=== PATIENT | male | born 1960 | race Caucasian/White ===

== ENCOUNTER 2022-06-21 09:36 | Outpatient (AMB) | payer OTHER, SELFPAY ==
--- NOTE | 2022-06-21 09:48 | A.OFFPC_ITS ---
Vital Signs 06/21/22 09:59 Height 6 ft Weight 202 lb BMI 27.3 BP 140/80 H Blood Pressure Location Lt brachial Position Sitting Pulse 70 Pulse Source Pulse Oximeter Pulse Oximetry (%) 97 Oxygen Delivery Method Room Air Intake Visit Reasons: Hypertension Intake Note: Pt is here today to f/u HTN Allergies No Known Allergies [No Known Allergies*] Allergy (Verified 06/21/22 10:31) Medication List - Last Reconciled 06/21/22 by Loly Morley MD lisinopril 40 mg PO DAILY Tobacco use date assessed: 06/21/22 HPI HPI Comments History of Present Illness Details Patient states that he does had a DOT physical several weeks ago and blood pressure there was 136 systolic. Denies any chest pain, no lightheadedn ess, no having, no chest pressure, nausea. Currently takes lisinopril 40 mg once a day in a.m., and has been trying to follow a low-salt diet but admits to not getting any regular exercise. He is also due for screening colonoscopy, has history of tubular adenoma removed [facility] Medical History (Updated 06/21/22 @ 10:50 by Loly Morley MD) Essential hypertension Family history of colon cancer in father Immunization refused Tubular adenoma of colon Surgical History History of vasectomy Hx of colonoscopy Family History Father Colon cancer Mother CVD (cardiovascular disease) Smoker History of heart attack Social History Housing: House Alcohol intake: current Patient Tobacco Use Status: Never used Tobacco e-Cigarette/Vaping Use: Never Used service: No Current occupational status: employed Cognitive needs: No Hearing needs: No Vision needs: No Questionnaire PHQ-9 Over the last 2 weeks, how often have you been bothered by any of the following problems? 1. Little interest or pleasure in doing things: not at all 2. Feeling down, depressed, or hopeless: not at all 3. Trouble falling or staying asleep, or sleeping too much: not at all 4. Feeling tired or having little energy: not at all 5. Poor appetite or overeating: not at all 6. Feeling bad about yourself - or that you are a failure or have let yourself or your family down: not at all 7. Trouble concentrating on things, such as reading the newspaper or watching television: not at all 8. Moving or speaking so slowly that other people could have noticed. Or the opposite - being so fidgety or restless that you have been moving around a lot more than usual: not at all 9. Thoughts that you would be better off or of hurting yourself in some way: not at all Total score: 0 Depression Screening Interpretation: Negative 24927 - PHQ-9 Billing: Yes Source: Developed by Drs. Michael Nuñez, Cammy Chamberlain, Trevor Brunner and colleagues, with an educational maximo from [employer]. Thrive Questionnaire Declines Thrive assessment: No Date Thrive assessed: 06/21/22 I am a: Patient What is your living situation today?: I have a steady place to live Within the past 12 months, did the food you bought not last and you didn't have the money to get more?: Never true Within the past 12 months, did you worry whether your food would run out before you got money to buy more?: Never true Do you have trouble paying for medicines?: No Do you have trouble getting transportation to medical appointments?: No Do you have trouble paying your heating and electricity bill?: Yes Do you have trouble taking care of your child, family member or friend?: No Do you have trouble with day-to-day activities such as bathing, preparing meals, shopping, managing finances, etc.?: No Are you currently unemployed and looking for a job?: No Are you interested in more education?: No AUDIT C Alcohol Use Questionnaire (AUDIT-C) 1. How often do you have a drink containing alcohol?: Monthly or less 2. How many drinks containing alcohol do you have on a typical day when you are drinking?: 1 or 2 3. How often do you have six or more drinks on one occasion?: Never Total Score: 1 Review of Systems Const Denies fatigue and Denies lethargy Eyes Denies change in vision Card Denies chest pain, Denies pedal edema, Denies edema, Denies irregular heart rhythm, Denies lightheadedness, Denies radiating jaw, neck or arm pain and Denies dyspnea Resp Denies cough and Denies dyspnea GI Reports no additional complaints Reports no additional complaints Musc Reports no additional complaints Neuro Reports no additional complaints Endo Denies fatigue Physical exam (Primary Care) Vital Signs: Last Vital Signs Pulse 70 06/21/22 09:59 BP 140/80 H 06/21/22 09:59 Pulse Ox 97 06/21/22 09:59 Oxygen Delivery Method Room Air 06/21/22 09:59 BMI result Body Mass Index 27.3 Tobacco/Smoking Status: Tobacco use Status Tobacco use date assessed 06/21/22 06/21/22 10:04 Patient Tobacco Use Status Never used Tobacco 06/21/22 10:04 e-Cigarette/Vaping Use Never Used 06/21/22 10:04 PHQ-9: PHQ-9 Score PHQ-9: Total score 0 06/21/22 10:36 Depression Screening Interpretation: Negative Thrive Assessment: Date of Thrive Assessment Date Thrive assessed 06/21/22 06/21/22 09:58 Const Other: Alert oriented x3, no acute distress noted ambulatory normal gait Nutritional Appearance: overweight Orientation/consciousness: patient oriented x3 HENMT Head: Yes normocephalic Face and sinus: Yes face symmetric Mouth: Normal oral and palatal mucosa present, tongue normal, oropharynx normal and moist mucous membranes Neck Neck: Yes full ROM, Yes no lymphadenopathy and Yes supple Resp Auscultation: clear to auscultation bilaterally Cardio Rate: regular rate Rhythm: regular rhythm Heart sounds: S1 normal heart sound present and S2 normal heart sound present GI Palpation (GI): Soft to palpation, nontender, no guarding and no masses Auscultation: normal bowel sounds Neuro General: patient oriented x3, gait normal, tone normal, moves all extremities, Normal light touch and pain sensation, no focal motor deficits and CN's II-XI i ntact bilaterally Extrem General: Yes full ROM, Yes no joint enlargement, Yes no clubbing, cyanosis or edema, Yes no calf tenderness and Yes normal gait Assessment and Plan Assessment & Plan (1) Essential hypertension: Code(s): I10 - Essential (primary) hypertension Plan: Blood pressure goal is less than 130/80. Continue with lisinopril 40 mg daily. Reinforced importance of following a low sodium diet, getting regular exercise, and lowering stress levels. Fasting labs ordered to check lipids, basic metabolic panel, liver enzymes, (2) Tubular adenoma of colon: Code(s): D12.6 - Benign neoplasm of colon, unspecified Plan: Referred to GI for repeat colonoscopy (3) Family history of colon cancer in father: Code(s): Z80.0 - Family history of malignant neoplasm of digestive organs (4) Immunization refused: Code(s): Z28.21 - Immunization not carried out because of patient refusal (5) Screening for prostate cancer: Code(s): Z12.5 - Encounter for screening for malignant neoplasm of prostate Plan: Total PSA ordered Orders: Orders Alanine Aminotransferase 06/21/22 Z80.0 - Family history of malignant neoplasm of digestive organs, I10 - Essential (primary) hypertension, D12.6 - Benign neoplasm of colon, unspecified, Z12.5 - Encounter for screening for malignant neoplasm of prostate Aspartate Amino Transferase 06/21/22 Z80.0 - Family history of malignant neoplasm of digestive organs, I10 - Essential (primary) hypertension, D12.6 - Benign neoplasm of colon, unspecified, Z12.5 - Encounter for screening for malignant neoplasm of prostate Basic Metabolic Panel Fasting 06/21/22 Z80.0 - Family history of malignant neoplasm of digestive organs, I10 - Essential (primary) hypertension, D12.6 - Benign neoplasm of colon, unspecified, Z12.5 - Encounter for screening for malignant neoplasm of prostate Lipid Panel 06/21/22 Z80.0 - Family history of malignant neoplasm of digestive organs, I10 - Essential (primary) hypertension, D12.6 - Benign neoplasm of colon, unspecified, Z12.5 - Encounter for screening for malignant neoplasm of prostate PSA,Total (Free>4and<10) 06/21/22 Z80.0 - Family history of malignant neoplasm of digestive organs, I10 - Essential (primary) hypertension, D12.6 - Benign neoplasm of colon, unspecified, Z12.5 - Encounter for screening for malignant neoplasm of prostate Referrals Gastroenterology Referral D12.6 - Benign neoplasm of colon, unspecified, Z80.0 - Family history of malignant neoplasm of digestive organs Medications: Refilled lisinopril 40 mg PO DAILY 90 caps 3RF I10 - Essential (primary) hypertension Coding Level of Care Code Est Pt Level 4 (67085) Diagnoses Essential hypertension I10 Tubular adenoma of colon D12.6 Family history of colon cancer in father Z80.0 Immunization refused Z28.21 Screening for prostate cancer Z12.5
[2022-06-21 09:59] VITALS: BP 140/80; PULSE 70; O2SAT 97; BMI 27.3
== END 2022-06-21 10:52 | disposition home or self-care (01) ==
LOC: HO.HMGC 09:36
PROVIDERS: PCP Internal Medicine; Visit Provider Internal Medicine
DX: I10 Essential (primary) hypertension (principal); D12.6 Benign neoplasm of colon, unspecified; Z80.0 Family history of malignant neoplasm of digestive organs; Z28.21 Immunization not carried out because of patient refusal; Z12.5 Encounter for screening for malignant neoplasm of prostate
CPT/HCPCS: 99214

== ENCOUNTER 2023-06-25 10:35 | Outpatient (AMB) | payer OTHER, SELFPAY ==
--- NOTE | 2023-06-25 11:29 | MHC.PC.OV ---
Vital Signs 06/25/23 11:39 06/25/23 12:09 Height 6 ft Weight 198 lb BMI 26.9 BP 150/82 H 135/80 Blood Pressure Location Lt brachial Lt brachial Position Sitting Sitting Pulse 66 Pulse Source Pulse Oximeter Pulse Oximetry (%) 97 Oxygen Delivery Method Room Air Intake Visit Reasons: Annual PE Hypertension Intake Note: Pt is here today for his PE: Colonoscopy 07/17/2017 Allergies No Known Allergies [No Known Allergies*] Allergy (Verified 06/25/23 12:15) Medication List - Last Reconciled 06/25/23 by Loly Morley MD lisinopril 40 mg PO DAILY Tobacco use date assessed: 06/25/23 Dental Screening Dental Screen Date: 06/25/23 Did you have a dental visit in the last 12 months?: Yes Did you have a dental problem in the last 6 months where you did not have access to dental care?: Yes Was dental information given to patient?: Patient has dentist HPI Annual PE Hypertension HPI Details 63-year-old male here today for his physical exam. He has hypertension currently stable on lisinopril 40 mg daily. He is semi retired, but still works part-time, stays active, does not smoke and tries to eat a healthy diet. He is overdue for a screening colonoscopy, father has been diagnosed to have book colon cancer. He has had 2 colonoscopies both of which showed presence of tubular adenoma. He has already fasting labs ordered, reminded to get it done Does not want to get COVID vaccine or flu shot, up-to-date with his Tdap, reminded to get his shingles vaccine PFS Medical History Immunization refused Family history of colon cancer in father Essential hypertension Tubular adenoma of colon Surgical History Hx of colonoscopy History of vasectomy Family History Father Colon cancer Mother CVD (cardiovascular disease) Smoker History of heart attack Social History Housing: House Alcohol intake: current Patient Tobacco Use Status: Never used Tobacco e-Cigarette/Vaping Use: Never Used service: No Current occupational status: employed Cognitive needs: No Hearing needs: No Vision needs: No Questionnaire PHQ-9 Over the last 2 weeks, how often have you been bothered by any of the following problems? 1. Little interest or pleasure in doing things: not at all 2. Feeling down, depressed, or hopeless: not at all 3. Trouble falling or staying asleep, or sleeping too much: not at all 4. Feeling tired or having little energy: not at all 5. Poor appetite or overeating: not at all 6. Feeling bad about yourself - or that you are a failure or have let yourself or your family down: not at all 7. Trouble concentrating on things, such as reading the newspaper or watching television: not at all 8. Moving or speaking so slowly that other people could have noticed. Or the opposite - being so fidgety or restless that you have been moving around a lot more than usual: not at all 9. Thoughts that you would be better off or of hurting yourself in some way: not at all Total score: 0 Depression Screening Interpretation: Negative Depression Screening Done: Yes 32047 - PHQ-9 Billing: Yes Source: Developed by Drs. Michael Nuñez, Cammy Chamberlain, Trevor Brunner and colleagues, with an educational maximo from [employer] acquired by [employer]. Thrive Questionnaire Date Thrive assessed: 06/25/23 I am a: Patient What is your living situation today?: I have a steady place to live Within the past 12 months, did the food you bought not last and you didn't have the money to get more?: Never true Within the past 12 months, did you worry whether your food would run out before you got money to buy more?: Never true Do you have trouble paying for medicines?: No Do you have trouble getting transportation to medical appointments?: No Do you have trouble paying your heating and electricity bill?: No Do you have trouble taking care of your child, family member or friend?: No Do you have trouble with day-to-day activities such as bathing, preparing meals, shopping, managing finances, etc.?: No Are you currently unemployed and looking for a job?: No Are you interested in more education?: No THRIVE Score: 0 AUDIT C Alcohol Use Questionnaire (AUDIT-C) 1. How often do you have a drink containing alcohol?: 2-3 times a week 2. How many drinks containing alcohol do you have on a typical day when you are drinking?: 1 or 2 3. How often do you have six or more drinks on one occasion?: Never Total Score: 3 TYLER-7 AMB Questionnaire TYLER-7 Date TYLER - 7 assessed: 06/25/23 Feeling nervous, anxious, or on edge: 0 = Not at all Not being able to stop or control worryin = Not at all Worrying too much about different things: 0 = Not at all Trouble relaxin = Not at all Being so restless that it is hard to sit still: 0 = Not at all Becoming easily annoyed or irritable: 0 = Not at all Feeling afraid as if something awful might happen: 0 = Not at all Total TYLER-7 score (0-4 normal; 5-9 mild; 10-14 moderate; 15-21 severe): 0 Source: Developed by Drs. Michael Nuñez, Cammy Chamberlain, Trevor Brunner and colleagues, with an educational maximo from [employer] acquired by [employer]. TYLER-7 Assessment Billing TYLER-7 Assessment Tool: TYLER-7 Assessment 32187 Review of Systems Const Denies difficulty sleeping, Denies fatigue, Denies lethargy and Denies weakness Eyes Denies change in vision ENT Reports no additional complaints Card Denies chest pain, Denies pedal edema, Denies edema, Denies irregular heart rhythm, Denies lightheadedness, Denies radiating jaw, neck or arm pain and Denies dyspnea Resp Denies cough and Denies dyspnea GI Reports no additional complaints Reports no additional complaints Musc Reports no additional complaints Skin/Breast Denies rash Neuro Reports no additional complaints and Denies weakness Psych Reports no additional complaints Endo Denies fatigue, Denies polydipsia and Denies polyuria Baljit/Lymph Reports no additional complaints Aller/Immun Reports no additional complaints Physical exam (Primary Care) Vital Signs: Last Vital Signs Pulse 66 06/25/23 11:39 BP 150/82 H 06/25/23 11:39 Pulse Ox 97 06/25/23 11:39 Oxygen Delivery Method Room Air 06/25/23 11:39 BMI result Body Mass Index 26.9 Tobacco/Smoking Status: Tobacco use Status Tobacco use date assessed 06/25/23 06/25/23 11:31 Patient Tobacco Use Status Never used Tobacco 06/25/23 11:31 e-Cigarette/Vaping Use Never Used 06/25/23 11:31 PHQ-9: PHQ-9 Score PHQ-9: Total score 0 06/25/23 11:44 Depression Screening Interpretation: Negative Thrive Assessment: Date of Thrive Assessment Date Thrive assessed 06/25/23 06/25/23 11:44 Const Other: Alert oriented x3, no acute distress noted ambulatory normal gait Nutritional Appearance: overweight Orientation/consciousness: patient oriented x3 HENMT Head: Yes normocephalic Face and sinus: Yes face symmetric Mouth: Normal oral and palatal mucosa present, oropharynx normal and moist mucous membranes Neck Neck: Yes full ROM, Yes no lymphadenopathy and Yes supple Resp Auscultation: clear to auscultation bilaterally Cardio Rate: regular rate Rhythm: regular rhythm Heart sounds: S1 normal heart sound present and S2 normal heart sound present GI Palpation (GI): Soft to palpation, nontender, no guarding and no masses Auscultation: normal bowel sounds Other: Declined exam General: Yes no CVA tenderness Back/Spine/Pelvis Back: no CVA tenderness and No back tenderness Skin General skin exam: no rashes or lesions noted Neuro General: patient oriented x3, gait normal, tone normal, moves all extremities, Normal light touch and pain sensation, no focal motor deficits and CN's II-XI intact bilaterally Extrem General: Yes full ROM, Yes no joint enlargement, Yes no clubbing, cyanosis or edema, Yes no calf tenderness and Yes normal gait Psych Appearance: grossly normal and well kempt Mental Status: mental status grossly normal Speech and movement: Normal speech and movement present Affect: normal affect Attitude: cooperative Thought process: Normal thought process present Thought content: Normal thought content present Assessment and Plan Assessment & Plan (1) Annual visit for general adult medical examination with abnormal findings: Code(s): Z00.01 - Encounter for general adult medical examination with abnormal findings Plan: Will check appropriate labs, already ordered, patient reminded to get it done. Recommended dental visit every 6 months and regular eye exams, at least every 2 years. Take adequate calcium in diet and vitamin-D 3 at 2000 IU per cap once a day, in addition to weight-bearing exercises to help maintain good muscle tone and weight control. Instructed to do self-testicular exam to check for any mass. Declined getting COVID or flu shot, recommended to get Shingrix vaccination. Referred to GI Clinic for his colonoscopy screening (2) Essential hypertension: Code(s): I10 - Essential (primary) hypertension Plan: Blood pressure goal is less than 130/80. Continue with lisinopril 40 mg daily. Reinforced importance of following a low sodium diet, getting regular exercise, and lowering stress levels. (3) Tubular adenoma of colon: Code(s): D12.6 - Benign neoplasm of colon, unspecified Plan: GI consult ordered for repeat colonoscopy (4) Family history of colon cancer in father: Code(s): Z80.0 - Family history of malignant neoplasm of digestive organs (5) Colon cancer screening: Code(s): Z12.11 - Encounter for screening for malignant neoplasm of colon Plan: Referred to GI Clinic (6) Immunization refused: Code(s): Z28.21 - Immunization not carried out because of patient refusal Plan: Patient does not want to get COVID vaccination or flu shot, but is willing to get the shingles vaccine, reminded to get it at his pharmacy, 2 doses give at least 2-6 months Orders: Orders Alanine Aminotransferase 06/21/23 I10 - Essential (primary) hypertension, Z12.5 - Encounter for screening for malignant neoplasm of prostate, Z13.220 - Encounter for screening for lipoid disorders Lipid Panel 06/21/23 I10 - Essential (primary) hypertension, Z12.5 - Encounter for screening for malignant neoplasm of prostate, Z13.220 - Encounter for screening for lipoid disorders Aspartate Amino Transferase 06/21/23 I10 - Essential (primary) hypertension, Z12.5 - Encounter for screening for malignant neoplasm of prostate, Z13.220 - Encounter for screening for lipoid disorders Basic Metabolic Panel Fasting 06/21/23 I10 - Essential (primary) hypertension, Z12.5 - Encounter for screening for malignant neoplasm of prostate, Z13.220 - Encounter for screening for lipoid disorders PSA,Total (Free>4and<10) 06/21/23 I10 - Essential (primary) hypertension, Z12.5 - Encounter for screening for malignant neoplasm of prostate, Z13.220 - Encounter for screening for lipoid disorders Referrals Gastroenterology Referral D12.6 - Benign neoplasm of colon, unspecified, Z12.11 - Encounter for screening for malignant neoplasm of colon, Z80.0 - Family history of malignant neoplasm of digestive organs Coding Level of Care Code Est Pt Prev Care 40-64y(78868) Diagnoses Annual visit for general adult medical examination with abnormal findings Z00.01 Essential hypertension I10 Tubular adenoma of colon D12.6 Family history of colon cancer in father Z80.0 Colon cancer screening Z12.11 Immunization refused Z28.21 Additional Codes TYLER-7 Assessment Billing - TYLER-7 Assessment Tool: TYLER-7 Assessment 78306 ([id number])
[2023-06-25 11:39] VITALS: BP 150/82; PULSE 66; O2SAT 97; BMI 26.9
[2023-06-25 12:09] VITALS: BP 135/80
== END 2023-06-25 12:15 | disposition home or self-care (01) ==
LOC: HO.HMGC 10:35
PROVIDERS: PCP Internal Medicine; Visit Provider Internal Medicine
DX: Z00.01 Encounter for general adult medical examination with abnormal findings (principal); I10 Essential (primary) hypertension; D12.6 Benign neoplasm of colon, unspecified; Z80.0 Family history of malignant neoplasm of digestive organs; Z12.11 Encounter for screening for malignant neoplasm of colon; Z28.21 Immunization not carried out because of patient refusal
CPT/HCPCS: 99396

== ENCOUNTER 2023-09-18 11:13 | Outpatient (AMB) | payer OTHER, SELFPAY ==
--- NOTE | 2023-09-18 11:14 | A.OFFVIS_ITS ---
Vital Signs 09/18/23 11:22 Height 6 ft Weight 202 lb 13.204 oz BMI 27.5 BP 166/86 H Blood Pressure Location Rt brachial Position Sitting Pulse 76 Pulse Source Pulse Oximeter Pulse Oximetry (%) 96 Intake Visit Reasons: Family Hx of Lucan Cancer Intake Note: Regulo presents in office today for a colo scrn; CC; Pt has prior hx of colo s/p. Pt reports that his last colo was approximately 6 years ago. Pt reports that this screening is strictly routine. Toxics Program Officer Required: No Allergies No Known Allergies [No Known Allergies*] Allergy (Verified 09/18/23 11:19) HPI HPI Family Hx of Lucan Cancer : Details: 63 year old? female here today for pre colonoscopy screening.? Patient was sent to us by his PCP.? Patient had colonoscopy in 2014 showing tubular adenoma. No polyps on colonoscopy in 2018. Due to family history of colorectal cancer patient was recommended to go for colorectal screening every 5 years. Patient's father at age 72 of CRC. ? Patient denies any gastrointestinal symptoms in the past or at present.? Denies any personal or family history of gastrointestinal disease, colon polyps, or CRC.? Denies history of difficulty with sedation or anesthesia in the past.? Negative for history of sleep apnea.? Denies any history of cardiac, renal, pulmonary, or hepatic disease.?? No history of infectious? diseases like hepatitis A, B, C, HIV or tuberculosis.? Patient is not on any anticoagulation [facility], [facility] Medical History Immunization refused Family history of colon cancer in father Essential hypertension Tubular adenoma of colon Surgical History Hx of colonoscopy History of vasectomy Family History Father Colon cancer Mother CVD (cardiovascular disease) Smoker History of heart attack Social History Housing: House Alcohol intake: current Patient Tobacco Use Status: Never used Tobacco e-Cigarette/Vaping Use: Never Used service: No Current occupational status: employed Cognitive needs: No Hearing needs: No Vision needs: No Review of Systems Const Denies weight gain and Denies weight loss ENT Reports no additional complaints, Denies dysphagia and Denies odynophagia Card Reports no additional complaints Resp Reports no additional complaints GI Denies abdominal pain, Denies belching, Denies melena, Denies bloating, Denies change in bowel habits, Denies dysphagia, Denies excessive flatus, Denies dyspepsia, Denies heartburn, Denies diarrhea, Denies loose stools, Denies nausea, Denies odynophagia and Denies vomiting Reports no additional complaints Musc Reports no additional complaints Neuro Reports no additional complaints Psych Reports no additional complaints Endo Reports no additional complaints Physical Exam Vital Signs: Last Vital Signs Pulse 76 09/18/23 11:22 BP 166/86 H 09/18/23 11:22 Pulse Ox 96 09/18/23 11:22 BMI result Body Mass Index 27.5 Const General: healthy appearing, no acute distress and well developed Nutritional Appearance: well nourished Orientation/consciousness: patient oriented x3 Resp Effort & Inspection: normal respiratory effort, able to speak in complete sentences, no tracheal deviation and symmetric chest movement Auscultation: clear to auscultation bilaterally Cardio Rate: regular rate GI Inspection: Yes normal to inspection and No distended Palpation (GI): Soft to palpation, not firm, nontender and No hepatosplenomegaly present Auscultation: normal bowel sounds General: Yes no CVA tenderness Back/Spine/Pelvis Back: no CVA tenderness Skin General skin exam: elasticity normal, turgor normal and dry skin Neuro General: patient oriented x3 Psych Appearance: grossly normal Mental Status: mental status grossly normal Assessment & Plan Assessment & Plan (1) Family history of colon cancer in father: Code(s): Z80.0 - Family history of malignant neoplasm of digestive organs Category: Medical (2) Colon cancer screening: Code(s): Z12.11 - Encounter for screening for malignant neoplasm of colon Plan Patient denies any GI, cardiac or respiratory symptoms.? Denies any issues with anesthesia in the past.? Denies any history of sleep apnea.? No history infectious diseases in the past or present.? Not on any anticoagulation therapy.? As mentioned above in HPI patient has a positive family history of CRC.? Patient denies melena, hematochezia, unintentional weight loss or ribbon like stools.? Discussed at length the pre-procedure,? prep, diet & medications as well as what to expect prior, during and after the procedure.?? Stressed the importance of good bowel prep.? Recommended the use of Vaseline or Calmoseptine OTC & baby wipes with bowel movements to promote comfort.? ?Patient verbalizes understanding and agrees to plan of care.? He was given the opportunity to ask questions and all questions answered.? We will see him after the procedure. Medications: New bisacodyl (Dulcolax (bisacodyl)) take 4 tabs at noon the day before your colonoscopy 20 mg (4 x 5 mg) PO ONCE 4 tabs 0RF 1 day Z12.11 - Encounter for screening for malignant neoplasm of colon polyethylene glycol 3350 (Miralax) As directed by gastroenterology department at [facility] 238 grams PO ONCE 238 grams 0RF Z12.11 - Encounter for screening for malignant neoplasm of colon Coding Level of Care Code New Pt Level 3 (57413) Diagnoses Family history of colon cancer in father Z80.0 Colon cancer screening Z12.11 Time Spent (min) 40 Comment 30 minutes spent with patient and additional 10 minutes spent reviewing his records
[2023-09-18 11:22] VITALS: BP 166/86; PULSE 76; O2SAT 96; BMI 27.5
== END 2023-09-18 12:02 | disposition home or self-care (01) ==
PROVIDERS: PCP Internal Medicine; Visit Provider Nurse Practitioner Family
DX: Z80.0 Family history of malignant neoplasm of digestive organs (principal); Z12.11 Encounter for screening for malignant neoplasm of colon
CPT/HCPCS: 99203

== ENCOUNTER → 2023-09-18 11:13 | Outpatient (BNVA) | payer OTHER, SELFPAY | PROVIDERS: PCP Internal Medicine; Visit Provider Nurse Practitioner Family ==

== ENCOUNTER 2023-10-08 07:15 | Outpatient (REF) | payer OTHER, SELFPAY ==
[2023-10-08 12:29] LABS: Alanine Aminotransferase 21 U/L (0-40); Anion Gap 18 (12-20); Aspartate Amino Transferase 23 U/L (5-37); Blood Urea Nitrogen 13 mg/dL (9-16); Calcium 9.4 mg/dL (8.4-10.2); Carbon Dioxide 23 mmol/L (22-29); Chloride 104 mmol/L (96-108); Cholesterol 207 mg/dL (<200); Estimated Glomerular Filt Rate > 60; Glucose Fasting 97 mg/dL (60-99); HDL Cholesterol 72 mg/dL (>40); LDL Cholesterol Calculated 121 mg/dL (<100); Potassium 4.7 mmol/L (3.3-5.1); Sodium 140 mmol/L (135-145); Triglycerides 72 mg/dL (<150)
[2023-10-08 13:15] LABS: PSA,Total (Free>4and<10) 2.39 ng/mL (0.00-4.00)
== END 2023-10-08 07:16 | disposition home or self-care (01) ==
LOC: HO.HMGCLDS 07:15
PROVIDERS: PCP Internal Medicine; Visit Provider Internal Medicine
DX: I10 Essential (primary) hypertension (principal); Z12.5 Encounter for screening for malignant neoplasm of prostate; Z13.220 Encounter for screening for lipoid disorders
CPT/HCPCS: 36415; 80048; 80061; 84153; 84450; 84460

== ENCOUNTER 2024-08-13 12:01 | Outpatient (AMB) | payer OTHER, SELFPAY ==
--- NOTE | 2024-08-13 13:17 | A.OFFPC_ITS ---
Vital Signs 08/13/24 13:18 Height 6 ft Weight 203 lb BMI 27.5 BP 130/80 Blood Pressure Location Rt brachial Position Sitting Respiration 16 Pulse 70 Pulse Source Pulse Oximeter Temp 98.0 F Temp Source Oral Pulse Oximetry (%) 97 Oxygen Delivery Method Room Air Intake Visit Reasons: Annual PE/Hypertension Intake Note: Pt is here today for his PE:last colonoscopy 07/17/17 Allergies No Known Allergies [No Known Allergies*] Allergy (Verified 08/13/24 13:23) Medication List - Last Reconciled 08/13/24 by Loly Morley MD lisinopril 40 mg PO DAILY Tobacco use date assessed: 08/13/24 Dental Screening Dental Screen Date: 08/13/24 Did you have a dental visit in the last 12 months?: No Did you have a dental problem in the last 6 months where you did not have access to dental care?: No Was dental information given to patient?: Patient has dentist HPI Annual PE/Hypertension HPI Details 64-year-old male with history of hyperte nsion currently on lisinopril 40 mg daily, here today for his physical exam. He has been feeling well, compliant with taking his medications with blood pressure stable and controlled on present treatment. He is up-to-date with his screening colonoscopy done in [address] Santiago, repeat due again this year. He does not want to get any vaccines [facility] Medical History Immunization refused Family history of colon cancer in father Essential hypertension Tubular adenoma of colon Surgical History Hx of colonoscopy History of vasectomy Family History Father Colon cancer Mother CVD (cardiovascular disease) Smoker History of heart attack Social History Housing: House Alcohol intake: current Patient Tobacco Use Status: Never used Tobacco e-Cigarette/Vaping Use: Never Used service: No Current occupational status: employed Cognitive needs: No Hearing needs: No Vision needs: No Questionnaire PHQ-9 Over the last 2 weeks, how often have you been bothered by any of the following problems? 1. Little interest or pleasure in doing things: not at all 2. Feeling down, depressed, or hopeless: not at all 3. Trouble falling or staying asleep, or sleeping too much: not at all 4. Feeling tired or having little energy: not at all 5. Poor appetite or overeating: not at all 6. Feeling bad about yourself - or that you are a failure or have let yourself or your family down: not at all 7. Trouble concentrating on things, such as reading the newspaper or watching television: not at all 8. Moving or speaking so slowly that other people could have noticed. Or the opposite - being so fidgety or restless that you have been moving around a lot more than usual: not at all 9. Thoughts that you would be better off or of hurting yourself in some way: not at all Total score: 0 Depression Screening Interpretation: Negative Depression Screening Done: Yes 58368 - PHQ-9 Billing: Yes Source: Developed by Drs. Michael Nuñez, Cammy Chamberlain, Trevor Brunner and colleagues, with an educational maximo from [employer]. Thrive Questionnaire Date Thrive assessed: 08/13/24 I am a: Patient What is your living situation today?: I have a steady place to live Within the past 12 months, did the food you bought not last and you didn't have the money to get more?: Never true Within the past 12 months, did you worry whether your food would run out before you got money to buy more?: Never true Do you have trouble paying for medicines?: No Do you have trouble getting transportation to medical appointments?: No Do you have trouble paying your heating and electricity bill?: Yes Do you have trouble taking care of your child, family member or friend?: No Do you have trouble with day-to-day activities such as bathing, preparing meals, shopping, managing finances, etc.?: No Are you currently unemployed and looking for a job?: No Are you interested in more education?: No Please select the resources that you would like help with: Utilities Currently or been in a relationship where the following occur: No concerns reported THRIVE Score: 1 AUDIT C Alcohol Use Questionnaire (AUDIT-C) 1. How often do you have a drink containing alcohol?: 2-4 times a month 2. How many drinks containing alcohol do you have on a typical day when you are drinking?: 1 or 2 3. How often do you have six or more drinks on one occasion?: Never Total Score: 2 TYLER-7 AMB Questionnaire TYLER-7 Date TYLER - 7 assessed: 08/13/24 Feeling nervous, anxious, or on edge: 0 = Not at all Not being able to stop or control worryin = Not at all Worrying too much about different things: 0 = Not at all Trouble relaxin = Not at all Being so restless that it is hard to sit still: 0 = Not at all Becoming easily annoyed or irritable: 0 = Not at all Feeling afraid as if something awful might happen: 0 = Not at all Total TYLER-7 score (0-4 normal; 5-9 mild; 10-14 moderate; 15-21 severe): 0 Source: Developed by Drs. Michael Nuñez, Cammy Chamberlain, Trevor Brunner and colleagues, with an educational maximo from [employer]. Review of Systems Const Reports no additional complaints Eyes Denies change in vision ENT Reports no additional complaints and Denies dysphagia Card Reports no additional complaints Resp Reports no additional complaints GI Denies abdominal pain, Denies melena, Denies bloating, Denies change in bowel habits, Denies dysphagia and Denies heartburn Reports no additional complaints Musc Reports no additional complaints Skin/Breast Denies rash Neuro Reports no additional complaints Psych Reports no additional complaints Endo Reports no additional complaints Baljit/Lymph Reports no additional complaints Aller/Immun Reports no additional complaints Physical exam (Primary Care) Vital Signs: Last Vital Signs Temp 98.0 F 08/13/24 13:18 Pulse 70 08/13/24 13:18 Resp 16 08/13/24 13:18 BP 130/80 08/13/24 13:18 Pulse Ox 97 08/13/24 13:18 Oxygen Delivery Method Room Air 08/13/24 13:18 BMI result Body Mass Index 27.5 Tobacco/Smoking Status: Tobacco use Status Tobacco use date assessed 08/13/24 08/13/24 13:21 Patient Tobacco Use Status Never used Tobacco 08/13/24 13:21 e-Cigarette/Vaping Use Never Used 08/13/24 13:21 PHQ-9: PHQ-9 Score PHQ-9: Total score 0 08/13/24 13:36 Depression Screening Interpretation: Negative Thrive Assessment: Date of Thrive Assessment Date Thrive assessed 08/13/24 08/13/24 13:21 Currently or been in a relationship where the following occur: No concerns reported Advance Care Planning discussion: Completed/Scanned Date of discussion: 08/13/24 Who was present: Patient Forms completed: Health Care Proxy Time spent: 16-45 minutes Actual minutes spent: 3 Const Other: Alert oriented x3, no acute distress noted ambulatory normal gait Nutritional Appearance: overweight Orientation/consciousness: patient oriented x3 HENMT Head: Yes normocephalic Face and sinus: Yes face symmetric Mouth: Normal oral and palatal mucosa present, oropharynx normal and moist mucous membranes Neck Neck: Yes full ROM, Yes no lymphadenopathy and Yes supple Resp Auscultation: clear to auscultation bilaterally Cardio Rate: regular rate Rhythm: regular rhythm Heart sounds: S1 normal heart sound present and S2 normal heart sound present GI Palpation (GI): Soft to palpation, nontender, no guarding and no masses Auscultation: normal bowel sounds Other: Declined exam Back/Spine/Pelvis Back: No back tenderness Skin General skin exam: no rashes or lesions noted Neuro General: patient oriented x3, gait normal, tone normal, moves all extremities, Normal light touch and pain sensation, no focal motor deficits and CN's II-XI intact bilaterally Extrem General: Yes full ROM, Yes no joint enlargement, Yes no clubbing, cyanosis or edema, Yes no calf tenderness and Yes normal gait Psych Appearance: grossly normal and well kempt Mental Status: mental status grossly normal Speech and movement: Normal speech and movement present Affect: normal affect Attitude: cooperative Thought process: Normal thought process present Thought content: Normal thought content present Coding Level of Care Code Est Pt Prev Care 40-64y(93275) Diagnoses Annual visit for general adult medical examination with abnormal findings Z00.01 Essential hypertension I10 Additional Codes PHQ-9 - 61298 - PHQ-9 Billing: Yes ([id number]) Vital Signs *Quality* - Advance Care Planning discussion: Completed/Scanned ([id number]) Vital Signs *Quality* - Time spent: 16-45 minutes ([id number]) Assessment & Plan Assessment & Plan (1) Annual visit for general adult medical examination with abnormal findings: Code(s): Z00.01 - Encounter for general adult medical examination with abnormal findings Plan: Will check appropriate labs. Recommended dental visit every 6 months and r egular eye exams, at least every 2 years. Take adequate calcium in diet and vitamin-D 3 at 2000 IU per cap once a day, in addition to weight-bearing exercises to help maintain good muscle tone and weight control. Instructed to do self-testicular exam check for any mass. Patient declined all recommended vaccines. He has already been referred to GI Clinic due for his repeat colonoscopy due to positive family history for colon cancer, seen last year for his prep, still waiting for colonoscopy appointment (2) Essential hypertension: Code(s): I10 - Essential (primary) hypertension Category: Medical Plan: Blood pressure at goal of less than 130/80. Continue lisinopril 40 mg daily. Reinforced importance of following a low sodium diet, getting regular exercise, and lowering stress levels. Orders: Orders Basic Metabolic Panel Fasting 08/13/24 I10 - Essential (primary) hypertension, Z00.01 - Encounter for general adult medical examination with abnormal findings, Z13.1 - Encounter for screening for diabetes mellitus, Z13.220 - Encounter for screening for lipoid disorders Lipid Panel 08/13/24 I10 - Essential (primary) hypertension, Z00.01 - Encounter for general adult medical examination with abnormal findings, Z13.1 - Encounter for screening for diabetes mellitus, Z13.220 - Encounter for screening for lipoid disorders Medications: Refilled lisinopril 40 mg PO DAILY 90 caps 3RF I10 - Essential (primary) hypertension
[2024-08-13 13:18] VITALS: BP 130/80; PULSE 70; RESP 16; TEMP 36.7; O2SAT 97; BMI 27.5
== END 2024-08-13 13:39 | disposition home or self-care (01) ==
LOC: HO.HMCC 12:02
PROVIDERS: Visit Provider Internal Medicine
DX: Z00.01 Encounter for general adult medical examination with abnormal findings (principal); I10 Essential (primary) hypertension; Z00.00 Encounter for general adult medical examination without abnormal findings

== ENCOUNTER → 2024-08-13 12:01 | Outpatient (BNVA) | payer OTHER, SELFPAY | PROVIDERS: Visit Provider Internal Medicine | DX: Z00.01 Encounter for general adult medical examination with abnormal findings (principal); I10 Essential (primary) hypertension; Z79.899 Other long term (current) drug therapy | CPT/HCPCS: 96127 ==